=== PATIENT | male | born 1965 | race African-American/Black ===

== ENCOUNTER 2018-08-10 23:11 | Emergency (ER) | payer OTHER ==
[~2018-08-10] VITALS: Ht 177.8 cm; Wt 95.3 kg
[2018-08-11] MEDS ORDERED: CYCLOBENZAPRINE5 M3 PO (01:42)
== END 2018-08-11 02:01 | disposition home or self-care (01) ==
LOC: ED 23:11
DX: M62.838 Other muscle spasm (principal); M54.2 Cervicalgia; M43.6 Torticollis